=== PATIENT | female | born 1960 | race Caucasian/White ===

== ENCOUNTER → 2017-09-09 10:39 | Outpatient (CLI) | payer OTHER, SELFPAY ==
--- NOTE | 2017-09-09 10:44 | RAD_ITS ---
STUDY: X-RAY CHEST REASON FOR EXAM: Female, 57 years old. 10 day history of cough and illness. TECHNIQUE: PA and lateral views of the chest. COMPARISON: Comparison is made with prior study dated May 30, 2011. FINDINGS: The lungs are clear and expanded. There is no demonstrated pleural abnormality. Normal size heart. Normal mediastinum and danica. Normal visualized pulmonary arteries. Normal visualized aortic arch and descending thoracic aorta. There is a dextroscoliosis of the thoracic spine. Normal visualized ribs, clavicles, and shoulders. There is no demonstrated abnormality of the visualized soft tissue structures of the upper abdomen. RAD/Chest PA and Lateral IMPRESSION: No acute abnormality is seen. Electronically Signed: Ti Cruz MD at 15:43 EST Tel [phone], Service support ,
== END ==
PROVIDERS: Family Provider Internal Medicine; PCP Internal Medicine; Visit Provider Internal Medicine
DX: R05 Cough (principal)
CPT/HCPCS: 71046

== ENCOUNTER → 2017-09-10 13:03 | Outpatient (CLI) | payer OTHER, SELFPAY ==
[2017-09-10 13:08] LABS: Absolute Lymphocyte Count 1.92 X10^3/ul (0.83-4.51); Absolute Neutrophil Count 3.3 X10^3/uL (2.0-7.7); Basophil# 0.03 X10^3/uL; Basophil% 0.5 % (0-1); Hematocrit 39.7 % (37-47); Hemoglobin 13.3 g/dl (12.0-15.0); Lymphocyte # 1.92 X10^3/ul (4.0); Mean Corp Hgb Conc 33.5 g/gl (32-36); Mean Corpuscular Hgb 31.9 pg (27.0-32.0); Mean Corpuscular Volume 95.2 fL (81-99); Mean Platelet Vol. 10.6 fl (6.2-12.0); Monocyte% 17.2 % (0-10); Neutrophil # 3.34 X10^3/uL (2.7-7.7); Neutrophil % 52.1 % (47-70); Platelet Count 262 K/mm3 (150-450); RBC Distribution Width CV 12.8 % (11.6-14.6); RBC Distribution Width SD 43.3 fl (35.1-43.9); Red Blood Count 4.17 M/mm3 (4.2-5.4); White Blood Count 6.4 K/mm3 (4.4-11.0)
[2017-09-10 13:09] LABS: POSITIVE COUNT NO; POSITIVE DIFFERENTIAL NO; POSITIVE MORPHOLOGY NO
[2017-09-10 13:24] LABS: ALB/GLOB Ratio 1.6 RATIO (0.9-2.4); AST(SGOT) 17 U/L (15-37); Alanine Aminotransfer ALT/SGPT 24 U/L (13-56); Albumin, Serum 4.1 g/dL (3.2-5.0); Alkaline Phosphatase 82 U/L (45-117); Anion Gap 10 (5-15); BUN 13 mg/dL (7-18); BUN/Creat Ratio 21.5 RATIO (10-20); Calcium,Total 8.8 mg/dL (8.5-10.1); Chloride 109 mmol/L (98-107); EST Glomerular Filtration Rate 108 mL/min (>60); Est Glom Filt Rate - Afr Amer 131 mL/min (>60); Globulin 2.6 g/dL (2.2-4.2); Glucose 86 mg/dL (70-110); Potassium 4.2 mmol/L (3.5-5.1); Protein, Total 6.7 g/dL (6.4-8.2); Sodium Level 143 mmol/L (136-145)
== END ==
PROVIDERS: Family Provider Internal Medicine; PCP Internal Medicine; Visit Provider Internal Medicine
DX: J18.9 Pneumonia, unspecified organism (principal)
CPT/HCPCS: 80053; 85025

== ENCOUNTER → 2017-10-15 10:53 | Outpatient (CLI) | payer OTHER, SELFPAY ==
--- NOTE | 2017-10-15 10:55 | HPBI_ITS ---
MAMMOGRAPHY - BILATERAL SCREENING REASON FOR EXAM: Female, 57 years old. Routine annual screening examination. PERTINENT HISTORY: Aunt with breast cancer. TECHNIQUE: Digital bilateral breast natalie (3D mammographic acquisition) in the CC and MLO projections. 2-D mediolateral oblique (MLO) and craniocaudad (CC) views of both breasts were obtained. CAD: Full Field Digital Mammography with Computer Added Detection was performed. COMPARISON: Comparison is made with prior examination dated August 28, 2016 and July 16, 2015. FINDINGS: Breast Composition: The breasts are extremely dense, which lowers the sensitivity of mammography. There are no dominant masses or suspicious calcifications. No other significant abnormalities are identified. There has been no significant change since the prior study. HPBI/SCREENING MAMM (CAD), BILAT IMPRESSION: Stable bilateral screening mammogram. Yearly follow-up mammogram recommended. (A) ASSESSMENT CATEGORY: BIRADS Category 1: Negative. A letter regarding these results will be sent to the patient by the facility within 30 days. Approximately 10% of breast cancers are not detected by mammography. A normal mammogram should not delay biopsy of a clinically suspicious abnormality. [id number] Electronically Signed: Ti Cruz MD at 12:33 EST Tel [phone], Service support ,
== END ==
PROVIDERS: Family Provider Internal Medicine; PCP Internal Medicine; Visit Provider Obstetrics & Gynecology
DX: Z12.31 Encounter for screening mammogram for malignant neoplasm of breast (principal); Z80.3 Family history of malignant neoplasm of breast
CPT/HCPCS: 77063; 77067

== ENCOUNTER → 2017-11-10 16:49 | Outpatient (CLI) | payer OTHER, SELFPAY ==
[2017-11-10 17:50] LABS: Color, Urine Yellow (Yellow); Glucose, Dipstick Normal (Normal); Ketone-Dipstick 50 mg/dl (Negative); Leukocyte Esterase-Dipstick 25 /ul (Negative); Nitrite-Dipstick Negative (Negative); Occult Blood-Urine 25 /ul (Negative); Protein-Dipstick 15 mg/dl (Negative); Urine Bilirubin Dipstick Negative (Negative); Urine Clarity Clear (Clear); Urine Urobilinogen Normal (Normal)
[2017-11-10 18:32] LABS: Progesterone Level 2.45 ng/mL (See Comment)
[2017-11-10 18:37] LABS: Estradiol 23.9 pg/mL
[2017-11-14 10:19] LABS: HPV Reflexed? NOT INDICATED
== END ==
PROVIDERS: Visit Provider Obstetrics & Gynecology
DX: N95.1 Menopausal and female climacteric states (principal); Z12.4 Encounter for screening for malignant neoplasm of cervix
CPT/HCPCS: 36415; 81002; 82670; 84144; 87077; 87086; 87088; 87186; 88175; G0145

== ENCOUNTER → 2018-05-18 12:12 | Outpatient (CLI) | payer OTHER, SELFPAY ==
[2018-05-18 14:31] LABS: T4 Total, Thyroxin 4.1 ug/dL (4.8-13.9); Thyroid Stim Hormone (TSH) < 0.01 uIU/mL (0.358-3.74)
[2018-05-18 14:32] LABS: T3 Total - Triiodothyronine 1.68 ng/mL (0.6-1.81); Vitamin B12 1757 pg/mL (211-911); Vitamin D,25 Hydroxy 50.5 ng/mL (29.95-100.01)
== END ==
PROVIDERS: Family Provider Student in an Organized Health Care Education/Training Program; PCP Student in an Organized Health Care Education/Training Program; Referring Provider Student in an Organized Health Care Education/Training Program; Visit Provider Student in an Organized Health Care Education/Training Program
DX: E03.9 Hypothyroidism, unspecified (principal); R53.83 Other fatigue; E55.9 Vitamin D deficiency, unspecified
CPT/HCPCS: 36415; 82306; 82607; 84436; 84439; 84443; 84480

== ENCOUNTER → 2019-02-23 10:55 | Outpatient (CLI) | payer SELFPAY ==
[2019-02-23 14:03] LABS: Estradiol < 11.0 pg/mL
[2019-02-23 14:08] LABS: Progesterone Level 5.18 ng/mL (See Comment)
== END ==
PROVIDERS: PCP Student in an Organized Health Care Education/Training Program; Visit Provider Obstetrics & Gynecology
DX: N95.1 Menopausal and female climacteric states (principal)
CPT/HCPCS: 36415; 82670; 84144; 84403

== ENCOUNTER → 2019-03-01 13:45 | Outpatient (CLI) | payer SELFPAY ==
[2019-03-08 15:17] LABS: HPV Reflexed? NOT INDICATED
== END ==
PROVIDERS: Visit Provider Obstetrics & Gynecology
DX: Z12.4 Encounter for screening for malignant neoplasm of cervix (principal)
CPT/HCPCS: 88175; G0145

== ENCOUNTER 2021-11-18 14:01 | Outpatient (CLI) | payer SELFPAY ==
[2021-11-24 14:53] LABS: HPV APTIMA, High Risk Negative (Negative)
== END 2021-11-18 23:59 | disposition home or self-care (01) ==
LOC: LABSPEC 14:02
PROVIDERS: PCP Student in an Organized Health Care Education/Training Program; Visit Provider Student in an Organized Health Care Education/Training Program
DX: Z12.4 Encounter for screening for malignant neoplasm of cervix (principal)
CPT/HCPCS: 87624; 88175; G0145

== ENCOUNTER 2023-07-26 13:56 | Emergency (ER) | payer OTHER, SELFPAY ==
[2023-07-26 13:57] VITALS: BP 148/94; PULSE 118; RESP 16; TEMP 36.8; O2SAT 98
[2023-07-26 14:01] VITALS: BMI 22.7
--- NOTE | 2023-07-26 14:07 | ED.VIS.FALL ---
HPI <NOEL Alarcon - Last Filed: 07/26/23 15:16> HPI - Fall History of Present Illness Chief Complaint: Fall Narrative Narrative: Patient's trash can have fallen over in addition she was trying to pull it off when the wind knocked the lid backwards causing her to fall. She hit her forehead on the plastic lid of the trash can and caught herself with her right hand. No loss of consciousness. No blood thinners. She has a right eyebrow laceration and a mild headache but no visual changes and no vomiting. She complains of right hand pain. No weakness or paresthesias. She is [id number]. [facility] <NOEL Alarcon - Last Filed: 07/26/23 15:16> [facility] Medical History (Updated 07/26/23 @ 15:[address] Ryan Pena MD) Celiac disease Lupus Home Medications Progesterone Bioident./Troches 45 mg PO QHS 05/31/13 [History Last Taken Unknown] Venlafaxine Xr [Effexor Xr] 75 mg PO DAILY 05/31/13 [History Last Taken Unknown] belimumab 400 mg intravenous solution (Benlysta) 500 mg IV .[id number] 05/31/13 [History Last Taken Unknown] cholecalciferol (vitamin D3) 50 mcg (2,000 unit) tablet (Vitamin D3) 2,000 unit PO DAILY 05/31/13 [History Last Taken Unknown] hydroxychloroquine 200 mg tablet 300 mg PO QHS 05/31/13 [History Last Taken Unknown] lactobacillus combination no.4 3 billion cell capsule (Probiotic) 1 ea PO DAILY 05/31/13 [History Last Taken Unknown] lorazepam 0.5 mg tablet 0.5 mg PO QHS PRN PRN Sleep 05/31/13 [History Last Taken Unknown] multivitamin with folic acid 400 mcg tablet (Thera) 1 tab PO DAILY 05/31/13 [History Last Taken Unknown] tramadol 50 mg tablet 50 mg PO Q6H PRN PRN Pain 05/31/13 [History Last Taken Unknown] levothyroxine 25 mcg tablet 25 mcg PO DAILY 03/06/15 [History Last Taken Unknown] metronidazole 500 mg tablet 500 mg PO BID 5 days #10 tabs 07/26/23 [Rx Last Taken Unknown] Allergy/AdvReac Type Severity Reaction Status Date / Time Iodinated Contrast Media Allergy Intermediate Hives AND Verified 07/26/23 13:57 [Iodinated Contrast Media - WHEEZING IV Dye] NSAIDS (Non-Steroidal Allergy Intermediate HIVES,ITCHING Verified 07/26/23 13:57 Anti-Inflamma AND INCREASED BP Sulfa (Sulfonamide Allergy Intermediate HIVES AND Verified 07/26/23 13:57 Antibiotics) WHEEZING gluten Allergy Rash Verified 07/26/23 13:57 Surgical History (Updated 07/26/23 @ 14:07 by Elida Wright) History of tonsillectomy Social History Smoking Status: Never smoker ROS <NOEL Alarcon - Last Filed: 07/26/23 15:16> ROS ED ROS Narrative Eyes: Negative for visual change. GI: Negative for vomiting. Neuro: Positive for headache, negative for motor/sensory dysfunction. Skin: Positive for abrasion. Musc: Positive for right hand pain. EXAM <NOEL Alarocn - Last Filed: 07/26/23 15:16> Physical Exam Narrative Exam Narrative: CONST: Patient sitting in no acute distress. EYES: Normal inspection. PERRL, EOMI. HEAD: 2 cm laceration superior to right lateral eyebrow. No hematoma, no bony deformity or crepitus, no step-offs. No raccoon eyes or Reilly sign, no epistaxis or nasal septal hematoma, no hemotympanum, no CSF otorrhea or rhinorrhea NECK: Normal inspection. No midline spinal tenderness, no step off or crepitus. RESP: No respiratory distress, CTAB. Chest wall nontender. CVS: Regular rate and rhythm, no murmur, no gallop. ABD: Soft and nontender, no guarding or rebound, nondistended. SKIN: Superficial small abrasion right dorsal middle finger over DIP joint. EXTREMITIES: Normal appearance of bilateral upper extremities, tender over second and third metacarpals and digits. No deformity or crepitus, no wrist or elbow tenderness. Normal motor and sensory function in median radial and ulnar distributions, 2+ radial pulses and brisk cap refill. No tenderness of the lower extremities, 2+ PT pulses. NEURO: Oriented x4. PSYCH: Normal affect. Const Vital Signs: 07/26/23 13:57 07/26/23 14:01 Temperature 98.2 F Temperature Source Temporal Pulse Rate 118 H Respiratory Rate 16 Respiratory Effort Normal Respiratory Depth Normal Respiratory Pattern Normal Blood Pressure 148/94 H Blood Pressure Mean 112 Pulse Ox 98 Oxygen Delivery Method Room Air Room Air <Dr. Ryan Pena MD - Last Filed: 07/26/23 15:28> Physical Exam Const Vital Signs: 07/26/23 13:57 07/26/23 14:01 Temperature 98.2 F Temperature Source Temporal Pulse Rate 118 H Respiratory Rate 16 Respiratory Effort Normal Respiratory Depth Normal Respiratory Pattern Normal Blood Pressure 148/94 H Blood Pressure Mean 112 Pulse Ox 98 Oxygen Delivery Method Room Air Room Air MDM <NOEL Alarcon - Last Filed: 07/26/23 15:16> [facility] Narrative Medical decision making narrative: Patient had mechanical fall with head injury. No LOC. Laceration with no signs of basilar skull fracture. Awake alert with GCS of 15. Neurologically intact. According to [place] CT head rule does not require imaging. Wound was cleansed, prepped and draped in sterile condition, and I placed 3 simple interrupted sutures of 6-0 Ethilon with good approximation. Patient declined tetanus as she states it caused allergic reaction of using in the past. I prescribed metronidazole to help prevent infection. She also has pain in her right dorsal hand and second and third digits. X-ray shows no fracture or dislocation. Patient counseled on symptomatic care and discharged in stable condition I have personally performed a face to face assessment of the patient and have reviewed the POPPY Note. I performed a substantive portion of the visit including all aspects of the following. My owen findings include: History is for blunt trauma with laceration superior and lateral portion of right brow. She is not on antithrombotic or anticoagulant. There is no loss of conscious. She also sustained injury to her right hand. She is right-hand dominant. She localizes pain over the second and third metacarpal bone predominantly. She denies paresthesia, anesthesia or motor weakness. Will update tetanus if needed. Exam is for curvilinear laceration above the right brow. This will require suturing. The laceration goes down to the fascia of the temporalis muscle. The levator mechanism is intact. There is no subconjunctival hemorrhage noted. Pupils were equal round reactive. Patient also has evidence of trauma to the right long finger. The extensor and flexor mechanism is intact. Sensations intact. No subungual hematoma noted. Median, radial and ulnar function intact. Medical Decision Making obtain x-ray of the hand to evaluate for contusion versus fracture. Will update tetanus if needed. Laceration will require repair. Other additions or changes: X-ray of the hand is independent reviewed interpreted by me as negative. There is no fracture, subluxation dislocation. There is no foreign body noted. The wrist portion that was seen reveals no evidence of a volar fat pad. The carpal bones aligned with no asymmetry. Radiography Diagnostic Testing: Clinical Impression(s) from Imaging Studies Hand X-Ray 07/26/23 14:17 IMPRESSION: Degenerative changes. Electronically Signed: Ti Cruz MD at 14:35 EST , <Dr. Ryan Pena MD - Last Filed: 07/26/23 15:28> [facility] MDM Narrative Medical decision making narrative: I have personally performed a face to face assessment of the patient and have reviewed the POPPY Note. I performed a substantive portion of the visit including all aspects of the following. My owen findings include: History is for blunt trauma with laceration superior and lateral portion of right brow. She is not on antithrombotic or anticoagulant. There is no loss of conscious. She also sustained injury to her right hand. She is right-hand dominant. She localizes pain over the second and third metacarpal bone predominantly. She denies paresthesia, anesthesia or motor weakness. Will update tetanus if needed. Exam is for curvilinear laceration above the right brow. This will require suturing. The laceration goes down to the fascia of the temporalis muscle. The levator mechanism is intact. There is no subconjunctival hemorrhage noted. Pupils were equal round reactive. Patient also has evidence of trauma to the right long finger. The extensor and flexor mechanism is intact. Sensations intact. No subungual hematoma noted. Median, radial and ulnar function intact. Medical Decision Making obtain x-ray of the hand to evaluate for contusion versus fracture. Will update tetanus if needed. Laceration will require repair. Other additions or changes: X-ray of the hand is independent reviewed interpreted by me as negative. There is no fracture, subluxation dislocation. There is no foreign body noted. The wrist portion that was seen reveals no evidence of a volar fat pad. The carpal bones aligned with no asymmetry. Radiography Diagnostic Testing: Clinical Impression(s) from Imaging Studies Hand X-Ray 07/26/23 14:17 IMPRESSION: Degenerative changes. Electronically Signed: Ti Cruz MD at 14:35 EST , Discharge Plan Triage Chief Complaint: Fall ED Midlevel Provider: Jeniffer Shaw ED Provider: Ryan Pena Dx/Rx/DC Orders Clinical Impression: Closed head injury, Contusion of hand, right, Laceration of eyebrow, right, Abrasion of right middle finger, initial encounter Instructions: ED Laceration Minimize Scars Prescriptions: New metronidazole 500 mg tablet 500 mg PO BID 5 Days Qty: 10 0RF Rx Instructions: do not drink alcohol while on this medication and for 48 hours after finishing it No Action hydroxychloroquine 200 MG tablet 300 mg PO QHS Venlafaxine Xr [Effexor Xr] 75 MG capsule 75 mg PO DAILY tramadol 50 MG tablet 50 mg PO Q6H PRN PRN (Reason: Pain) lorazepam 0.5 MG tablet 0.5 mg PO QHS PRN PRN (Reason: Sleep) Progesterone Bioident./Troches 45 mg PO QHS Benlysta 400 MG recon soln 500 mg IV .[id number] cholecalciferol (vitamin D3) [Vitamin D3] 2,000 UNIT tablet 2,000 unit PO DAILY multivitamin with folic acid [Thera] 1 TABLET tablet 1 tab PO DAILY Probiotic 1 EACH capsule 1 ea PO DAILY levothyroxine 25 MCG tablet 25 mcg PO DAILY Primary Care Provider: Lawson Hays Referrals: Lawson Hays DO [Primary Care Provider] - Disposition Disposition: Home, Self Care Discharge Date/Time: 07/26/23 15:23
--- NOTE | 2023-07-26 14:17 | RAD_ITS ---
STUDY: X-RAY - RIGHT HAND REASON FOR EXAM: Female, 63 years old. Pain following a fall. TECHNIQUE: 3 view(s) of the hand. COMPARISON: None. FINDINGS: Normal radiocarpal articulation. Normal distal radioulnar joint. Normal visualized carpal bones. Normal carpal articulations Normal carpometacarpal articulation of the thumb. Normal second through fifth carpometacarpal joints. Normal metacarpi. Normal metacarpophalangeal joint of the thumb. Normal interphalangeal joint of the thumb. Normal proximal and distal phalanges of the thumb. Normal metacarpophalangeal joints of the second through fifth fingers. There is diffuse articular joint space narrowing of the proximal and distal interphalangeal joints of the second through fifth fingers, but without erosive changes or periarticular soft tissue swelling. Normal phalanges of the second through fifth fingers. The soft tissue structures are unremarkable. RAD/Hand Min 3 Views IMPRESSION: Degenerative changes. Electronically Signed: Ti Cruz MD at 14:35 EST ,
[2023-07-26] MEDS: Acetaminophen 500 MG Tablet 1000 MG PO (14:31)
== END 2023-07-26 15:23 | disposition home or self-care (01) ==
PROVIDERS: Emergency Provider Emergency Medicine; PCP Student in an Organized Health Care Education/Training Program; Visit Provider Emergency Medicine
DX: S01.111A Laceration without foreign body of right eyelid and periocular area, initial encounter (principal); S60.221A Contusion of right hand, initial encounter; S60.412A Abrasion of right middle finger, initial encounter; W01.198A Fall on same level from slipping, tripping and stumbling with subsequent striking against other object, initial encounter; L93.2 Other local lupus erythematosus; K90.0 Celiac disease; Z79.899 Other long term (current) drug therapy
CPT/HCPCS: 73130; 99283

== ENCOUNTER 2024-09-07 19:55 | Emergency (ER) | payer SELFPAY ==
[2024-09-07 19:56] VITALS: BP 152/88; PULSE 93; RESP 18; TEMP 36.4; O2SAT 97
[2024-09-07 20:10] VITALS: BMI 20.8
--- NOTE | 2024-09-07 20:21 | EKG12_ITS ---
Test Reason : DYSRHYTHMIA Blood Pressure : */* mmHG Vent. Rate : 78 BPM Atrial Rate : 78 BPM P-R Int : 126 ms QRS Dur : 142 ms QT Int : 420 ms P-R-T Axes : 82 -71 47 degrees QTcB Int : 478 ms Normal sinus rhythm Left axis deviation Right bundle branch block Septal infarct , age undetermined Abnormal ECG Confirmed by REANNA CORRAL, JUDY ([id number]), editorial specialist CELIA FARNSWORTH ([id number]) on 09/11/2024 6:07:08 AM Referred By: Confirmed By: JUDY FORTE MD
[2024-09-07] MEDS: Ondansetron 4 MG/2 ML Vial IV (20:34)
[2024-09-07] MEDS: 0.9% Normal Saline (1000mL) 1,000 ML 999 ML IV ×2 (20:34→22:20)
[2024-09-07 20:36] LABS: Absolute Lymphocyte Count 1.84 X10^3/uL (0.83-4.51); Absolute Neutrophil Count 3.2 X10^3/uL (2.0-7.7); Basophil# 0.02 X10^3/uL; Basophil% 0.4 % (0-1); Eosinophil# 0.02 X10^3/uL; Eosinophils% 0.4 % (0-5); Hematocrit 39.5 % (37-47); Hemoglobin 13.6 g/dL (12.0-15.0); Lymphocyte # 1.84 X10^3/ul (0.83-4.51); Lymphocyte % 32.7 % (19-41); Mean Corp Hgb Conc 34.4 g/dL (32-36); Mean Corpuscular Hgb 31.8 pg (27.0-32.0); Mean Corpuscular Volume 92.3 fL (81-99); Mean Platelet Vol. 9.5 fl (6.2-12.0); Monocyte# 0.54 X10^3/uL; Monocyte% 9.6 % (0-10); NRBC Flagged by Analyzer 0 % (0-5); Neutrophil # 3.18 X10^3/uL (2.7-7.7); Neutrophil % 56.5 % (47-70); Platelet Count 335 K/mm3 (150-450); RBC Distribution Width CV 12.6 % (11.6-14.6); RBC Distribution Width SD 42.3 fl (35.1-43.9); Red Blood Count 4.28 M/mm3 (4.2-5.4); White Blood Count 5.6 K/mm3 (4.4-11.0)
[2024-09-07 20:55] LABS: ALB/GLOB Ratio 1.3 RATIO (0.9-2.4); AST(SGOT) 15 U/L (15-37); Alanine Aminotransfer ALT/SGPT 24 U/L (13-56); Albumin, Serum 3.9 g/dL (3.2-5.0); Alkaline Phosphatase 88 U/L (45-117); Anion Gap 10 (5-15); BUN 7 mg/dL (7-18); BUN/Creat Ratio 10.5 RATIO (10-20); Calcium,Total 9.3 mg/dL (8.5-10.1); Chloride 109 mmol/L (98-107); Creatinine, Serum 0.67 mg/dL (0.55-1.02); EST Glomerular Filtration Rate 95 mL/min (>60); Est Glom Filt Rate - Afr Amer 114 mL/min (>60); Estimated Creatinine Clearance 73.25 ml/min; Glucose 115 mg/dL (74-106); Lipase 30 U/L (13-75); Potassium 3.4 mmol/L (3.5-5.1); Protein, Total 6.9 g/dL (6.4-8.2); Sodium Level 140 mmol/L (136-145)
--- NOTE | 2024-09-07 21:00 | EX.ED.DYSGE1 ---
HPI <KARY Hodges - Last Filed: 09/07/24 22:04> History of Present Illness Chief Complaint: Nausea/Vomiting Narrative Narrative: Patient is a 64-year-old female with history of lupus who is currently not on any immunosuppression drugs. Presenting to the emergency department for nausea and vomiting for 2 days. Patient states that she has been sick for the last several weeks secondary to a sinus infection, bronchitis, is currently on doxycycline as well has been on 2 Medrol Dosepaks. Patient states of the last 48 hours, she has been having nausea and vomiting where she can even keep water down. She is feeling dehydrated, she denies any diarrhea, she denies any urinary complaints. She denies any specific abdominal pain. PFS <KARY Hodges - Last Filed: 09/07/24 22:04> [facility] Medical History (Updated 09/07/24 @ 22:[address] Riki Mccord MD) Thyroiditis Celiac disease Lupus Home Medications ?Medication ?Instructions ?Recorded ?Last Taken ?Type Progesterone Bioident./Troches 45 mg PO QHS 05/31/13 Unknown History Venlafaxine Xr [Effexor Xr] 75 mg PO DAILY 05/31/13 Unknown History cholecalciferol (vitamin D3) 50 2,000 unit PO DAILY 05/31/13 Unknown History mcg (2,000 unit) tablet (Vitamin D3) hydroxychloroquine 200 mg tablet 300 mg PO QHS 05/31/13 Unknown History lactobacillus combination no.4 3 1 ea PO DAILY 05/31/13 Unknown History billion cell capsule (Probiotic) lorazepam 0.5 mg tablet 0.5 mg PO QHS PRN PRN Sleep 05/31/13 Unknown History multivitamin with folic acid 400 1 tab PO DAILY 05/31/13 Unknown History mcg tablet (Thera) tramadol 50 mg tablet 50 mg PO Q6H PRN PRN Pain 05/31/13 Unknown History metronidazole 500 mg tablet 500 mg PO BID 5 days #10 tabs 07/26/23 Unknown Rx doxycycline monohydrate 100 mg 100 mg PO BID 10 days #20 tabs 08/31/24 Unknown Rx tablet bupropion HCl 150 mg tablet,12 hr 150 mg PO BID 09/07/24 Unknown History sustained-release (Wellbutrin SR) levothyroxine 50 mcg tablet 50 mcg PO .COMPLEX 09/07/24 Unknown History metoclopramide HCl 5 mg tablet 5 mg PO Q6H PRN nausea and 09/07/24 Unknown Rx (Reglan) vomiting 5 days #14 tabs Allergy/AdvReac Type Severity Reaction Status Date / Time Iodinated Contrast Media Allergy Intermediate Hives AND Verified 09/07/24 19:58 (Iodinated Contrast Media - WHEEZING IV Dye) NSAIDS (Non-Steroidal Allergy Intermediate HIVES,ITCHING Verified 09/07/24 19:58 Anti-Inflamma AND INCREASED BP Sulfa (Sulfonamide Allergy Intermediate HIVES AND Verified 09/07/24 19:58 Antibiotics) WHEEZING gluten Allergy Rash Verified 09/07/24 19:58 Surgical History History of tonsillectomy Social History Smoking Status: Never smoker ROS <KARY Hodges - Last Filed: 09/07/24 22:04> ROS ED ROS Narrative Constitutional: Negative for fever, chills, weight loss, weakness Eyes: Negative for vision loss, vision change, double vision ENT: Negative for any sore throat, ear pain, congestion Cardiovascular: Negative for any chest pain, tightness, palpitations Respiratory: Negative for any cough, sputum production, hemoptysis, dyspnea, dyspnea on exertion, orthopnea Gastrointestinal: Negative for any abdominal pain diarrhea, constipation, blood in stool, blood in vomit. Positive for nausea and vomiting : Negative for any urinary frequency, dysuria, retention, blood in urine Muscle skeletal: Negative for any neck pain, back pain Neurological: Negative for any headache, syncope, dizziness Skin: Negative for any rashes, itching, abrasions, lacerations Psychiatric: Negative for any depression, anxiety, stress, suicidal ideation, homicidal ideation Hematologic: Negative for any excessive bruising, easy bleeding EXAM <EVAN HodgesC - Last Filed: 09/07/24 22:04> Physical Exam Narrative Exam Narrative: Vital signs reviewed. HEET: Head normocephalic atraumatic, TMs clear bilaterally. Posterior pharynx is clear, dry mucous membranes. Nares clear bilaterally. Neck: Supple with no lymphadenopathy or tenderness. No signs of meningismus. Cardiac: Regular rate and rhythm no murmurs gallops or rubs, equal peripheral pulses bilaterally. Respiratory: Lungs clear to auscultation bilaterally. No chest tenderness. Abdomen: Soft, nontender, nondistended. No abdominal bruit or pulsatile masses. No hepatosplenomegaly Extremities: No peripheral edema, no signs of gross trauma or deformity. Active full range of motion of all extremities. Neuro: Cranial nerves II through XII intact, no focal neurological deficits. Skin: Clean dry and intact with no rash, purpura, petechiae, vesicles or pustules. Backs/flank: No CVA tenderness, no midline spinal tenderness, no deformity. Psych: Normal mood and affect. No SI, HI or acute psychosis. Const Vital Signs: 09/07/24 19:56 09/07/24 22:01 Temperature 97.6 F L Temperature Source Temporal Pulse Rate 93 69 Respiratory Rate 18 12 Blood Pressure 152/88 H 133/85 H Blood Pressure Mean 109 101 Pulse Ox 97 100 Oxygen Delivery Method Room Air Room Air <Dr. Riki Mccord MD - Last Filed: 09/07/24 23:19> Physical Exam Const Vital Signs: 09/07/24 19:56 09/07/24 22:01 Temperature 97.6 F L Temperature Source Temporal Pulse Rate 93 69 Respiratory Rate 18 12 Blood Pressure 152/88 H 133/85 H Blood Pressure Mean 109 101 Pulse Ox 97 100 Oxygen Delivery Method Room Air Room Air MDM <KARY Hodges - Last Filed: 09/07/24 22:04> [facility] Lab Data Labs: Laboratory Results - last 24 hr 09/07/24 20:27 WBC 5.6 RBC 4.28 Hgb 13.6 Hct 39.5 MCV 92.3 MCH 31.8 MCHC 34.4 RDW Std Deviation 42.3 RDW Coeff of Margie 12.6 Plt Count 335 MPV 9.5 Immature Gran % (Auto) 0.400 Neut % (Auto) 56.5 Lymph % (Auto) 32.7 Atkinson % (Auto) 9.6 Eos % (Auto) 0.4 Baso % (Auto) 0.4 Absolute Neuts (auto) 3.2 Absolute Lymphs (auto) 1.84 Nucleated RBC % 0 Sodium 140 Potassium 3.4 L Chloride 109 H Carbon Dioxide 21.0 Anion Gap 10 BUN 7 Creatinine 0.67 Estim Creat Clear Calc 73.25 Est GFR (MDRD) Af Amer 114 Est GFR (MDRD) Non-Af 95 BUN/Creatinine Ratio 10.5 Glucose 115 H Calcium 9.3 Total Bilirubin 0.60 AST 15 ALT 24 Alkaline Phosphatase 88 Total Protein 6.9 Albumin 3.9 Globulin 3.0 Albumin/Globulin Ratio 1.3 Lipase 30 Radiography Diagnostic Testing: Clinical Impression(s) from Imaging Studies Chest X-Ray 09/07/24 21:25 IMPRESSION: No radiographic evidence of acute cardiopulmonary disease [facility] Treatment and Re-Evaluation :: Differential diagnosis includes however is not limited to: Dehydration, electrolyte abnormality, bowel obstruction, viral gastroenteritis, COVID-19, influenza, RSV, community-acquired pneumonia Patient appears generally well, vital signs are stable, patient is nontoxic-appearing. Presenting to the emergency department for complaints of nausea and vomiting for the last 2 days. Patient will receive basic laboratory values, CBC CMP lipase, two-view chest x-ray will be obtained. Patient will receive a COVID-19 influenza RSV swab. 2 L of normal saline will be ordered, IV Zofran. All radiologic examinations were read, reviewed by the emergency department attending. From these reads, a plan of care will be put in place. Patient will need to be reevaluated After 1 L of normal saline, IV Zofran, patient felt slight improvement. Patient CBC was unremarkable, chemistries showed a potassium slight low at 3.4, glucose 115, lipase was negative. Patient's chest x-ray was completed, this showed no radiographic evidence of any acute cardiopulmonary disease. Patient received a second liter. Patient was given a p.o. challenge. She will continue to get another liter of fluid. <Dr. Riki Mccord MD - Last Filed: 09/07/24 23:19> [facility] Narrative Medical decision making narrative: I have personally performed a face to face assessment of the patient and have reviewed the POPPY Note. I performed a substantive portion of the visit including all aspects of the following. My owen findings include: History is ill with symptoms of productive bronchitis and wheezing off-and-on for the past 3 to 4 weeks, has been on multiple rounds of antibiotics, Medrol Dosepak, nothing helping, now feeling worse over the last 2-3 days with vomiting to the point where she is having trouble keeping anything down, throbbing headache, myalgias, fevers. Exam is lungs clear to auscultation. Bronchitic cough. No tachycardia. Abdomen soft nontender. Appears malaised but no distress. Medical Decison Making 2 view chest x-ray on my interpretation negative for pneumonia radiology in agreement. Her labs are normal, she was given IV fluids, Zofran, this helped, and her swab comes back positive for influenza, confirming viral etiology. We recommend discontinuing any steroids and antibiotics, supportive care advised, she is not required Tamiflu and is stable with normal vital signs and lack of hypoxemia. Other additions or changes: [None] Lab Data Labs: Laboratory Results - last 24 hr 09/07/24 20:27 WBC 5.6 RBC 4.28 Hgb 13.6 Hct 39.5 MCV 92.3 MCH 31.8 MCHC 34.4 RDW Std Deviation 42.3 RDW Coeff of Margie 12.6 Plt Count 335 MPV 9.5 Immature Gran % (Auto) 0.400 Neut % (Auto) 56.5 Lymph % (Auto) 32.7 Atkinson % (Auto) 9.6 Eos % (Auto) 0.4 Baso % (Auto) 0.4 Absolute Neuts (auto) 3.2 Absolute Lymphs (auto) 1.84 Nucleated RBC % 0 Sodium 140 Potassium 3.4 L Chloride 109 H Carbon Dioxide 21.0 Anion Gap 10 BUN 7 Creatinine 0.67 Estim Creat Clear Calc 73.25 Est GFR (MDRD) Af Amer 114 Est GFR (MDRD) Non-Af 95 BUN/Creatinine Ratio 10.5 Glucose 115 H Calcium 9.3 Total Bilirubin 0.60 AST 15 ALT 24 Alkaline Phosphatase 88 Total Protein 6.9 Albumin 3.9 Globulin 3.0 Albumin/Globulin Ratio 1.3 Lipase 30 Radiography Diagnostic Testing: Clinical Impression(s) from Imaging Studies Chest X-Ray 09/07/24 21:25 IMPRESSION: No radiographic evidence of acute cardiopulmonary disease Reading [facility] Discharge Plan Triage Chief Complaint: Nausea/Vomiting ED Midlevel Provider: Roly Blount ED Provider: Riki Mccord Dx/Rx/DC Orders Clinical Impression: Nausea & vomiting, Influenza A Instructions: ED Vomiting (Adult) Prescriptions: New metoclopramide HCl [Reglan] 5 mg tablet 5 mg PO Q6H PRN (Reason: nausea and vomiting) 5 Days Qty: 14 0RF No Action doxycycline monohydrate 100 mg tablet 100 mg PO BID 10 Days Qty: 20 0RF hydroxychloroquine 200 MG tablet 300 mg PO QHS Venlafaxine Xr [Effexor Xr] 75 MG capsule 75 mg PO DAILY tramadol 50 MG tablet 50 mg PO Q6H PRN PRN (Reason: Pain) lorazepam 0.5 MG tablet 0.5 mg PO QHS PRN PRN (Reason: Sleep) Progesterone Bioident./Troches 45 mg PO QHS cholecalciferol (vitamin D3) [Vitamin D3] 2,000 UNIT tablet 2,000 unit PO DAILY multivitamin with folic acid [Thera] 1 TABLET tablet 1 tab PO DAILY Probiotic 1 EACH capsule 1 ea PO DAILY metronidazole 500 mg tablet 500 mg PO BID 5 Days Qty: 10 0RF Rx Instructions: do not drink alcohol while on this medication and for 48 hours after finishing it bupropion HCl [Wellbutrin SR] 150 mg tablet sustained-release 12 hr 150 mg PO BID levothyroxine 50 mcg tablet 50 mcg PO .COMPLEX Rx Instructions: 50 mcg orally every other day; Primary Care Provider: Lawson Hays Referrals: Lawson Hays DO [Primary Care Provider] - Activity Restrictions/Additional Instructions: Please follow-up outpatient. Maintain hydration. Print Language: Panamanian Disposition Disposition: Home, Self Care
--- NOTE | 2024-09-07 21:25 | RAD_ITS ---
PROCEDURE: CHEST PA AND LATERAL REASON FOR EXAM: Cough TECHNIQUE: Frontal and lateral views of the chest. COMPARISON: None. FINDINGS: The heart size is normal. The mediastinal contour is unremarkable. The lungs are clear. Scoliosis is noted in the thoracic spine. RAD/Chest PA and Lateral IMPRESSION: No radiographic evidence of acute cardiopulmonary disease Reading Location: [facility]
[2024-09-07 22:01] VITALS: BP 133/85; PULSE 69; RESP 12; O2SAT 100
[2024-09-07] MEDS: Metoclopramide 10 MG/2 ML Vial 5 MG IV (22:19)
[2024-09-07 23:28] VITALS: BP 131/74; PULSE 65; RESP 12; TEMP 36.6; O2SAT 96
== END 2024-09-07 23:34 | disposition home or self-care (01) ==
PROVIDERS: Nurse Practitioner; Emergency Provider Emergency Medicine; PCP Student in an Organized Health Care Education/Training Program; Visit Provider Emergency Medicine
DX: J10.2 Influenza due to other identified influenza virus with gastrointestinal manifestations (principal)
CPT/HCPCS: 71046; 80053; 83690; 85025; 87631; 93005; 96361; 96374; 96375; 99282; A4216; J2405